=== PATIENT | male | born 1975 | race Caucasian/White ===

== ENCOUNTER 2018-02-24 07:12 | Emergency (ER) | payer OTHER ==
[~2018-02-24] VITALS: Ht 177.8 cm; Wt 88.0 kg
[~2018-02-24 07:12] MED LIST: ANTIBIOTIC PO; QUINU10 PD
[2018-02-24 07:45] LABS: ABSOLUTE LYMPHOCYTES 1.2 thou/uL (0.8-5.3); ABSOLUTE MONOCYTES 0.6 thou/uL (0.0-1.2); BASOPHILS 0.2 %; EOSINOPHILS 0.3 %; HEMATOCRIT 44.7 % (42.0-52.0); HEMOGLOBIN 14.8 gm/dL (14.0-18.0); LYMPHOCYTES 13.8 %; MCH 28.9 pg (26.0-34.0); MCHC 33.1 g/dL (28.0-37.0); MCV 87.3 fL (80.0-100.0); MONOCYTES 6.8 %; MPV 7.3 fl. (7.2-11.1); NUCLEATED RBCS 0 /100WBC; PLATELET COUNT* 218 thou/uL (150-400); POLYS 78.9 %; RBC 5.12 mil/uL (4.50-6.00); RDW-CV 12.6 % (10.5-14.5); WBC 8.8 thou/uL (4.0-11.0)
[2018-02-24 07:51] LABS: ANION GAP 6 mmol/L (7-16); BUN 14 mg/dL (7-18); CALCIUM 8.4 mg/dL (8.5-10.1); CHLORIDE 105 mmol/L (98-107); CO2 29 mmol/L (21-32); CREATININE 1.1 mg/dL (0.6-1.3); GLUCOSE 148 mg/dL (70-99); POTASSIUM 4.3 mmol/L (3.5-5.1); SODIUM 140 mmol/L (136-145)
[2018-02-24 07:59] LABS: TROPONIN-I LEVEL <0.06 ng/mL (<0.06)
[2018-02-24 08:02] LABS: INFLUENZA A ANTIGEN None Detected (None Detect); INFLUENZA B ANTIGEN None Detected (None Detect)
[2018-02-24] MEDS ORDERED: ZOFRAN ODT4 MG DISSOLVE (08:07)
[2018-02-24 08:21] VITALS: BP 97/65
--- NOTE | 2018-02-24 12:42 | EKG ---
[place] [address] ELECTROCARDIOGRAM REPORT Name: MIKE HAWLEY SR Room: [facility]#: [id number] Admission: 02/24/18 Attend Phys: Discharge: 02/24/18 Date of : 75 Report #: [id number] THIS REPORT FOR: //name// [facility] ED Test Date: 2018-02-24 Test Time: 07:26:27 Pat Name: MIKE HAWLEY Department: Room: Gender: M Form Maker: Guille ROGERS : 1975 Requested By: Rogerio Valenzuela Order Number: [id number] MD: Raudel Jiménez Measurements Intervals [place] Rate: 59 P: -1 [place]: 181 QRS: 43 QRSD: 92 T: 7 QT: 390 QTc: 387 Interpretive Statements Sinus rhythm Compared to ECG 08/13/2013 10:49:50 Sinus arrhythmia no longer present Electronically Signed On 02-24-2018 12:42:34 INTELLIGENCE SPECIALIST by Raudel Jiménez [email or web address] <ELECTRONICALLY SIGNED> By: Raudel Jiménez MD, [facility] 02/24/18 [id number] Raudel Jiménez MD, FACC /EPI
== END 2018-02-24 08:22 | disposition home or self-care (01) ==
LOC: M.ERS 07:12
PROVIDERS: Emergency Medicine Emergency Medical Services
DX: B34.9 Viral infection, unspecified (principal); R42 Dizziness and giddiness; J45.909 Unspecified asthma, uncomplicated

== ENCOUNTER → 2018-09-04 | Outpatient (CLI) | payer OTHER ==
[~2018-09-04] MED LIST changes: +ZOFRAN ODT4 MG DISSOLVE
== END ==
LOC: M.CT 11:12
DX: Z13.6 Encounter for screening for cardiovascular disorders (principal)